=== PATIENT | female | born 1985 | race Caucasian/White ===

== ENCOUNTER 2017-12-22 12:54 | Emergency (ER) | payer OTHER ==
[~2017-12-22] VITALS: Ht 167.6 cm; Wt 59.0 kg
[~2017-12-22 12:54] MED LIST: DIME120C2 PO; GABA300C10 PO; HYDR-3240 PO
[2017-12-22 12:55] VITALS: BP 118/72
[2017-12-22] MEDS ORDERED: FLUORESCEIN OPHTHALMIC 1 MG STRIP ONE ×2 (13:04)
[2017-12-22] MEDS ORDERED: PROPARACAINE OPHTH 0.5%, 15ML ONE (13:04)
== END 2017-12-22 14:49 | disposition home or self-care (01) ==
LOC: ED 14:30
DX: S05.02XA Injury of conjunctiva and corneal abrasion without foreign body, left eye, initial encounter (principal); S05.01XA Injury of conjunctiva and corneal abrasion without foreign body, right eye, initial encounter; T26.10XA Burn of cornea and conjunctival sac, unspecified eye, initial encounter; X58.XXXA Exposure to other specified factors, initial encounter; Y93.89 Activity, other specified; Y92.009 Unspecified place in unspecified non-institutional (private) residence as the place of occurrence of the external cause; Y99.8 Other external cause status
CPT/HCPCS: 99283